=== PATIENT | male | born 1950 | race Caucasian/White ===

== ENCOUNTER → 2016-08-10 | Outpatient (CLI) | payer OTHER ==
--- NOTE | 2016-08-11 07:17 | REP ---
Clinical: Lung screening. History of nicotine dependence. Comparison: 01/02/2012 Technique: Axial low-dose noncontrast images from the thoracic inlet to the upper abdomen using lung screening technique. Findings: The lung vega are well-aerated. No consolidation, significant nodule or mass lesion is appreciated. No pleural effusion/reaction or pneumothorax. Tracheobronchial tree is patent. Mediastinum demonstrates mild atherosclerotic changes of the coronary arteries without cardiomegaly. Impression: Lung-RADS category I. No nodule or suspicious abnormality. Signed by Abhishek Booth MD 08/11/2016 07:08 A
== END ==
LOC: M RAD 11:04
PROVIDERS: ATTEND Internal Medicine Pulmonary Disease
DX: Z87.891 Personal history of nicotine dependence (principal)

== ENCOUNTER → 2016-09-02 | Outpatient (REF) | payer OTHER ==
[2016-09-02 20:19] LABS: BASO % 0.6 % (0.0-1.0); EOS # 0.2 K/mm3 (0.0-0.50); EOS % 2.3 % (0.0-3.0); LARGE UNSTAINED CELL # 0.2 K/mm3 (0.0-0.4); LARGE UNSTAINED CELL % 2.2 % (0.0-4.0); LYMPH # 1.8 K/mm3 (1.5-4.5); LYMPH % 22.5 % (24.0-44.0); MEAN CORPUSCULAR HEMOGLOBIN 27.7 pg (27.0-33.0); MEAN CORPUSCULAR VOLUME 86.6 fl (80.0-96.0); MONO # 0.5 K/mm3 (0.0-0.8); MONO % 7.1 % (0.0-5.0); NEUTROPHILS # 4.8 K/mm3 (1.8-7.7); NEUTROPHILS % 65.2 % (36.0-66.0); PLATELET COUNT, AUTOMATED 274 k/mm3 (150-450); RED CELL DISTRIBUTION WIDTH 13.6 % (11.5-14.5); WHITE BLOOD COUNT 7.3 K/mm3 (4.0-10.0)
[2016-09-02 20:33] LABS: ALBUMIN 3.4 GM/DL (3.2-5.2); ALBUMIN/GLOBULIN RATIO 1.13 (1.00-1.93); BILIRUBIN,TOTAL 0.2 MG/DL (0.2-1.0); CALCIUM LEVEL 9.1 MG/DL (8.8-10.2); CREATININE FOR GFR 1.44 MG/DL (0.70-1.30); GLOMERULAR FILTRATION RATE 51.9 (>49); TOTAL PROTEIN 6.4 GM/DL (6.4-8.2)
[2016-09-02 20:35] LABS: POTASSIUM SERUM 5.5 MEQ/L (3.5-5.1)
== END ==
LOC: M SFHCLERA 15:45
PROVIDERS: ATTEND Nurse Practitioner Family
DX: R07.81 Pleurodynia (principal); S22.41XA Multiple fractures of ribs, right side, initial encounter for closed fracture; R63.4 Abnormal weight loss; X58.XXXA Exposure to other specified factors, initial encounter; Y92.89 Other specified places as the place of occurrence of the external cause; Y93.89 Activity, other specified; Y99.8 Other external cause status; R73.09 Other abnormal glucose

== ENCOUNTER → 2016-09-02 | Outpatient (CLI) | payer OTHER ==
--- NOTE | 2016-09-02 15:57 | REP ---
Clinical: Right rib pain. Technique: Frontal view of the chest with multiple views of the right hemithorax. Findings: Frontal view of the chest demonstrates no obvious acute cardiopulmonary process. Multiple views of the right hemithorax demonstrate a very subtle nondisplaced fractures involving the and to anterolateral margins of the right seventh and eighth ribs. Impression: Subtle nondisplaced fractures involving the anterolateral 7th and 8th ribs. Signed by Abhishek Booth MD 09/02/2016 03:46 P
== END ==
LOC: M LRY 15:08
PROVIDERS: ATTEND Nurse Practitioner Family
DX: S22.41XA Multiple fractures of ribs, right side, initial encounter for closed fracture (principal); R07.81 Pleurodynia; R63.4 Abnormal weight loss; X58.XXXA Exposure to other specified factors, initial encounter; Y92.89 Other specified places as the place of occurrence of the external cause; Y93.89 Activity, other specified; Y99.8 Other external cause status; Z79.899 Other long term (current) drug therapy
CPT/HCPCS: 71101; 80053; 81002; 82150; 82948; 83036; 83690; 84443; 85025; 93005; G0463

== ENCOUNTER → 2017-07-26 | Outpatient (REF) | payer OTHER ==
[2017-07-26 13:32] LABS: BASO # 0.1 10^3/uL (0.0-0.2); BASO % 0.9 % (0.0-1.0); EOS # 0.2 10^3/uL (0.0-0.50); EOS % 2.8 % (0.0-3.0); HEMATOCRIT 38.9 % (42.0-52.0); HEMOGLOBIN 12.6 g/dl (13.5-17.5); IMMATURE GRANULOCYTE % 0.3 % (0-3.0); LYMPH # 1.7 10^3/uL (1.5-4.5); LYMPH % 23.5 % (24.0-44.0); MEAN CORPUSCULAR HEMOGLOBIN 28.1 pg (27.0-33.0); MEAN CORPUSCULAR HGB CONC 32.4 g/dl (32.0-36.5); MEAN CORPUSCULAR VOLUME 86.6 fl (80.0-96.0); MONO # 0.7 10^3/uL (0.0-0.8); MONO % 9.7 % (0.0-5.0); NEUTROPHILS # 4.4 10^3/uL (1.8-7.7); NEUTROPHILS % 62.8 % (36.0-66.0); PLATELET COUNT, AUTOMATED 193 10^3/uL (150-450); RED BLOOD COUNT 4.49 10^6/uL (4.30-6.10); RED CELL DISTRIBUTION WIDTH 14.6 % (11.5-14.5)
[2017-07-26 14:02] LABS: ESTIMATED AVERAGE GLUCOSE 137 MG/DL (60-110); HEMOGLOBIN A1c 6.4 %
[2017-07-26 14:05] LABS: ERYTHROCYTE SEDIMENTATION RATE 8 mm/hr (0-20)
[2017-07-26 14:13] LABS: FOLATE > 24.0 NG/ML; VITAMIN B12 LEVEL 1149 PG/ML
[2017-07-26 14:18] LABS: ALBUMIN 3.8 GM/DL (3.2-5.2); ALBUMIN/GLOBULIN RATIO 1.36 (1.00-1.93); ALKALINE PHOSPHATASE 77 U/L (45-117); ALT/SGPT 35 U/L (12-78); ANION GAP 6 MEQ/L (8-16); AST/SGOT 27 U/L (7-37); BILIRUBIN,TOTAL 0.3 MG/DL (0.2-1.0); BLOOD UREA NITROGEN 28 MG/DL (7-18); CALCIUM LEVEL 8.3 MG/DL (8.8-10.2); CARBON DIOXIDE LEVEL 29 MEQ/L (21-32); CHLORIDE LEVEL 107 MEQ/L (98-107); CREATININE FOR GFR 1.18 MG/DL (0.70-1.30); FERRITIN 8 NG/ML (26-388); FREE T4 0.84 NG/DL (0.76-1.46); GLOMERULAR FILTRATION RATE > 60.0 (>49); GLUCOSE, FASTING 92 MG/DL (70-100); IRON (FE) 98 UG/DL (65-175); PERCENT SATURATION 22.4 % (19.7-50.0); POTASSIUM SERUM 4.8 MEQ/L (3.5-5.1); RHEUMATOID FACTOR QUANT < 10.0 IU/ML (<15.0); SODIUM LEVEL 142 MEQ/L (136-145); TOTAL IRON BINDING CAPACITY 437 UG/DL (250-450); TOTAL PROTEIN 6.6 GM/DL (6.4-8.2)
[2017-07-28 08:11] LABS: ANTINUCLEAR ANTIBODIES DIRECT Negative (Negative); COPPER PLASMA 111 ug/dL (72-166); LEAD BLOOD ADULT <1 ug/dL (0-19); MERCURY LEVEL None Detected ug/L (0.0-14.9)
[2017-07-29 14:14] LABS: VITAMIN E(ALPHA TOCOPHEROL) 9.7 mg/L (9.0-29.0); VITAMIN E(GAMMA TOCOPHEROL) 1.1 mg/L (0.5-4.9)
[2017-07-30 00:08] LABS: CERULOPLASMIN 25.5 mg/dL (16.0-31.0); VITAMIN B1 LEVEL WHOLE BLOOD 169.1 nmol/L (66.5-200.0); VITAMIN B6,PYRIDOXAL PHOSPHATE 18.8 ug/L (5.3-46.7)
== END ==
LOC: M LABNEURO 10:19
DX: E07.9 Disorder of thyroid, unspecified (principal); E11.9 Type 2 diabetes mellitus without complications; R42 Dizziness and giddiness; E61.0 Copper deficiency
CPT/HCPCS: 82525

== ENCOUNTER → 2017-08-17 | Outpatient (REF) | payer OTHER ==
[2017-08-17 13:16] LABS: FERRITIN 6 NG/ML (26-388); IRON (FE) 79 UG/DL (65-175); PERCENT SATURATION 19.3 % (19.7-50.0); TOTAL IRON BINDING CAPACITY 409 UG/DL (250-450)
[2017-08-17 14:15] LABS: FOLATE 17.2 NG/ML; VITAMIN B12 LEVEL 811 PG/ML
== END ==
LOC: M LAB REF 12:42
DX: D64.9 Anemia, unspecified (principal)
CPT/HCPCS: 82746

== ENCOUNTER → 2017-09-21 | Outpatient (CLI) | payer OTHER | LOC: M RAD 12:18 | DX: M47.892 Other spondylosis, cervical region (principal) | CPT/HCPCS: 72052 ==

== ENCOUNTER → 2017-10-06 | Outpatient (CLI) | payer OTHER ==
[2017-10-06 13:11] LABS: BASO # 0.1 10^3/uL (0.0-0.2); BASO % 0.9 % (0.0-1.0); EOS # 0.3 10^3/uL (0.0-0.50); EOS % 3.8 % (0.0-3.0); HEMOGLOBIN 12.4 g/dl (13.5-17.5); IMMATURE GRANULOCYTE % 0.4 % (0-3.0); LYMPH # 1.9 10^3/uL (1.5-4.5); LYMPH % 28.5 % (24.0-44.0); MEAN CORPUSCULAR HEMOGLOBIN 28.4 pg (27.0-33.0); MEAN CORPUSCULAR HGB CONC 31.8 g/dl (32.0-36.5); MEAN CORPUSCULAR VOLUME 89.4 fl (80.0-96.0); MONO # 0.6 10^3/uL (0.0-0.8); MONO % 8.4 % (0.0-5.0); PLATELET COUNT, AUTOMATED 186 10^3/uL (150-450); RED BLOOD COUNT 4.36 10^6/uL (4.30-6.10); RED CELL DISTRIBUTION WIDTH 14.7 % (11.5-14.5); WHITE BLOOD COUNT 6.8 10^3/uL (4.0-10.0)
[2017-10-06 13:22] LABS: INR 0.92; PARTIAL THROMBOPLASTIN TIME 26.3 SECONDS (25.4-37.6); PROTHROMBIN TIME 12.5 SECONDS (12.1-14.4)
[2017-10-06 13:32] LABS: COLLAGEN EPINEPHRINE 140 SECONDS (74-162)
[2017-10-06 13:39] LABS: ALBUMIN 3.6 GM/DL (3.2-5.2); ALBUMIN/GLOBULIN RATIO 1.29 (1.00-1.93); ALKALINE PHOSPHATASE 75 U/L (45-117); ALT/SGPT 33 U/L (12-78); ANION GAP 8 MEQ/L (8-16); AST/SGOT 25 U/L (7-37); BILIRUBIN,TOTAL 0.3 MG/DL (0.2-1.0); BLOOD UREA NITROGEN 25 MG/DL (7-18); CALCIUM LEVEL 8.7 MG/DL (8.8-10.2); CARBON DIOXIDE LEVEL 28 MEQ/L (21-32); CHLORIDE LEVEL 109 MEQ/L (98-107); CREATININE FOR GFR 1.24 MG/DL (0.70-1.30); GLOMERULAR FILTRATION RATE > 60.0 (>49); GLUCOSE, FASTING 118 MG/DL (70-100); POTASSIUM SERUM 4.7 MEQ/L (3.5-5.1); SODIUM LEVEL 145 MEQ/L (136-145); TOTAL PROTEIN 6.4 GM/DL (6.4-8.2)
== END ==
LOC: M LAB 11:58
DX: Z01.818 Encounter for other preprocedural examination (principal); Z79.899 Other long term (current) drug therapy
CPT/HCPCS: 71046

== ENCOUNTER 2017-10-26 11:38 | Day surgery (SDC) | payer OTHER ==
[2017-10-26] MEDS ORDERED: LR 1,000 ML IV (11:45)
[2017-10-26 12:58] LABS: BEDSIDE GLUCOSE 104 MG/DL (80-115)
[2017-10-26] MEDS ORDERED: fentaNYL 100 MCG/2 ML INJECTION (J3010) As Ordered (13:10)
[2017-10-26] MEDS ORDERED: MIDAZOLAM INJ 2 MG/2 ML VIAL (J2250) As Ordered (13:11)
[2017-10-26] MEDS ORDERED: LIDOCAINE 2% INJ 100 MG/5 ML SDV (FOR ANES.) As Ordered (13:13)
[2017-10-26] MEDS ORDERED: PROPOFOL 200 MG/20 ML VIAL As Ordered (13:13)
[2017-10-26] MEDS: methylPREDNISolone SUSP 40 MG/ML (DEPO-medrol) VIAL (J1030) As Ordered (15:29)
[2017-10-26] MEDS: LIDOCAINE 1% SDV INJ 30 ML VIAL As Ordered (15:31)
== END 2017-10-26 17:07 | disposition home or self-care (01) ==
LOC: M SDC 11:38
DX: G57.82 Other specified mononeuropathies of left lower limb (principal); M21.372 Foot drop, left foot; I25.10 Atherosclerotic heart disease of native coronary artery without angina pectoris; I25.2 Old myocardial infarction; I13.10 Hypertensive heart and chronic kidney disease without heart failure, with stage 1 through stage 4 chronic kidney disease, or unspecified chronic kidney disease; E78.00 Pure hypercholesterolemia, unspecified; E11.9 Type 2 diabetes mellitus without complications; K21.9 Gastro-esophageal reflux disease without esophagitis; D64.9 Anemia, unspecified; R29.898 Other symptoms and signs involving the musculoskeletal system; M12.9 Arthropathy, unspecified; L40.9 Psoriasis, unspecified; R51 Headache; G62.9 Polyneuropathy, unspecified; J44.9 Chronic obstructive pulmonary disease, unspecified; G47.33 Obstructive sleep apnea (adult) (pediatric); N18.3 Chronic kidney disease, stage 3 (moderate); Z79.899 Other long term (current) drug therapy; Z79.82 Long term (current) use of aspirin; Z95.5 Presence of coronary angioplasty implant and graft; Z87.891 Personal history of nicotine dependence
CPT/HCPCS: 64722

== ENCOUNTER → 2018-02-02 | Outpatient (REF) | payer OTHER ==
[2018-02-02 18:18] LABS: BLOOD UREA NITROGEN 26 MG/DL (7-18)
[2018-02-02 18:18] LABS: CREATININE FOR GFR 1.38 MG/DL (0.70-1.30); GLOMERULAR FILTRATION RATE 54.4 (>49)
== END ==
LOC: M LABNEURO 14:11
DX: N18.9 Chronic kidney disease, unspecified (principal)
CPT/HCPCS: 82565

== ENCOUNTER → 2018-07-17 | Outpatient (CLI) | payer MEDICARE ==
[~2018-07-17] MED LIST: ASPI81TA21 PO; BUPR1TAB53 PO; CALC600T57 PO; CRES40TA PO; FERR32TA PO; FISH1200 PO; JANU25TA PO; LISI-1046 PO; MAGN400C2 PO; META0.52 PO; MULT1TAB28 PO; NITR4TASL SL; OMEP20CA3 PO; PRAM0.255 PO; VENL100T PO; VITA-122 PO; VITA500T3 PO
--- NOTE | 2018-07-17 13:15 | REP ---
CT chest with IV contrast: History: Solitary pulmonary nodule. Comparison is made with prior CT studies, the most remote of which is from January 02, 2012. A CT study is reviewed from August 10, 2016 and another from an outside facility June 27, 2017. CT findings: There is minimal linear fibrosis in the left lower lobe and posteriorly in the right upper lobe. There is a tiny subpleural 3 mm pulmonary nodule in the superior segment of the right lower lobe which is unchanged from all the prior studies including 2011. This is benign. No other significant pulmonary nodule is appreciated. There are small subcentimeter cysts in the dome of the liver. Post cholecystectomy clips are seen. No adrenal lesion is seen. There is extensive vascular calcification of the coronaries. No hilar or mediastinal mass or adenopathy is observed. No pleural or pericardial effusion is seen. Bone window settings show no bony destructive lesion. Impression: No active disease seen. Electronically Signed by Sanya Soliman MD 07/17/2018 07:29 P
== END ==
LOC: M RAD 12:18
PROVIDERS: ATTEND Internal Medicine Pulmonary Disease
DX: R91.1 Solitary pulmonary nodule (principal)

== ENCOUNTER → 2019-12-04 | Outpatient (CLI) | payer MEDICARE ==
[~2019-12-04] MED LIST changes: +CYAN500T8 PO; -LISI-1046 PO; +LISI2.5T2 PO; +OMEP1CAP73 PO; -OMEP20CA3 PO; -VITA500T3 PO
--- NOTE | 2019-12-12 09:44 | REP ---
BILATERAL LOWER EXTREMITY DUPLEX DOPPLER ARTERIAL ULTRASOUND: HISTORY: Atherosclerosis, leg pain. FINDINGS: Real time ultrasound evaluation and duplex Doppler interrogation of bilateral lower extremity arterial systems is performed. There is mild scattered plaquing and narrowing in the bilateral lower extremity arterial systems. However, there is no compelling duplex Doppler sonographic evidence of hemodynamically significant stenosis bilaterally. Triphasic wave forms are seen diffusely bilaterally with biphasic wave form in the distal left anterior tibial artery. PEAK SYSTOLIC VELOCITY ANALYSIS RIGHT (cm/s) LEFT (cm/s) Common femoral artery 95.6 134.1 Profunda 70.9 91.0 Proximal SFA 104.7 130.5 Mid-SFA 82.8 116.7 Distal SFA 106.1 126.6 Popliteal 81.6 64.9 Proximal SERG 89.5 88.4 Tibioperoneal trunk 75.6 86.8 Proximal MOTOR RUNNER 65.0 68.6 Distal MOTOR RUNNER 82.0 64.4 Distal SERG 68.4 70.6 MTDD
== END ==
LOC: M RAD 09:53
PROVIDERS: ATTEND Physician Assistant
DX: I70.203 Unspecified atherosclerosis of native arteries of extremities, bilateral legs (principal); M79.604 Pain in right leg; R09.89 Other specified symptoms and signs involving the circulatory and respiratory systems

== ENCOUNTER → 2020-11-12 | Outpatient (REF) | payer MEDICARE ==
[~2020-11-12] MED LIST changes: +CYAN500T14 PO; -CYAN500T8 PO; -LISI2.5T2 PO; +LISI2.5T9 PO
== END ==
LOC: M LAB REF 17:05
PROVIDERS: ATTEND Internal Medicine Nephrology
DX: N18.32 Chronic kidney disease, stage 3b (principal)

== ENCOUNTER → 2021-07-17 | Outpatient (REF) | payer MEDICARE ==
[2021-07-23 19:09] LABS: METANEPHRINE PLASMA 26.9 pg/mL (0.0-88.0)
== END ==
LOC: M LAB REF 17:50
PROVIDERS: ATTEND Nurse Practitioner Family
DX: N18.32 Chronic kidney disease, stage 3b (principal)

== ENCOUNTER → 2021-07-20 | Outpatient (CLI) | payer MEDICARE | LOC: M RAD 12:55 | PROVIDERS: ATTEND Nurse Practitioner Family | DX: R63.4 Abnormal weight loss (principal); R00.0 Tachycardia, unspecified; K57.30 Diverticulosis of large intestine without perforation or abscess without bleeding; N28.1 Cyst of kidney, acquired ==

== ENCOUNTER → 2021-09-02 | Outpatient (REF) | payer MEDICARE ==
[2021-09-03 17:50] LABS: IRON (FE) 97 UG/DL (65-175); PERCENT SATURATION 25.7 % (19.7-50.0); TOTAL IRON BINDING CAPACITY 377 UG/DL (250-450)
[2021-09-04 11:33] LABS: FOLATE > 24.0 NG/ML; VITAMIN B12 LEVEL 395 PG/ML
== END ==
LOC: M LAB REF 16:51
PROVIDERS: ATTEND Nurse Practitioner Family
DX: D50.9 Iron deficiency anemia, unspecified (principal); D51.9 Vitamin B12 deficiency anemia, unspecified

== ENCOUNTER → 2021-10-28 | Outpatient (CLI) | payer MEDICARE ==
[~2021-10-28] MED LIST changes: +ALBU8.5H INH; +AMMO12CR7; +CALC1CAP31 PO; +CLOT1CRE71 TOP; +DULC100C PO; +DULE200A INH; +ECOT81TA5 PO; +EZET10TA21 PO; +IRBE75TA4 PO; +KEPP250T5 PO; +META28.32 PO; +MIRA0.254 PO; +MULT-6 PO; +OMEP40CA4 PO; +PRAV40TA2 PO; +PRAZ1CAP PO; +TORS10TA3 PO; +VITA100093 PO
== END ==
LOC: M LABSMTC 09:58
PROVIDERS: ATTEND Anesthesiology
DX: Z01.818 Encounter for other preprocedural examination (principal); Z11.52 Encounter for screening for COVID-19

== ENCOUNTER → 2022-01-06 | Outpatient (CLI) | payer MEDICARE ==
[~2022-01-06] MED LIST changes: -AMMO12CR7; +AMMO12CR7 TOP; -DULE200A INH; +MOME13HF7 INH; +VENL150C43 PO
== END ==
LOC: M LABSMTC 10:38
PROVIDERS: ATTEND Anesthesiology
DX: Z01.812 Encounter for preprocedural laboratory examination (principal); Z11.52 Encounter for screening for COVID-19

== ENCOUNTER 2022-01-11 10:02 | Day surgery (SDC) | payer MEDICARE, OTHER ==
[~2022-01-11] VITALS: Ht 177.8 cm; Wt 99.8 kg
[~2022-01-11 10:02] MED LIST changes: +BSS IRRIG/VANCO(10MG)/TOBRA(5MG)/EPINEPH(1:1000-0.5CC)500ML BAG-ORONLY IR ONE; +CEFUROXIME 1MG/0.1ML INTRACAMERAL INJ As Ordered ONE; +CYCLOPENTOLATE 1% OPHTH SOLN 2 ML BTL OD SCH; +LIDOCAINE 1% SDV 5ML VIAL As Ordered ONE; +LIDOCAINE 3.5 % 1ML OPHTH TOPICAL GEL OU ONE; +OFLOXACIN 0.3 % (OCUFLOX) OPTH SOL 5ML OD ONE; +PHENYLEPHRINE 2.5% OPHTH SOL 2ML OD SCH; +PHENYLEPHRINE HCL 10 % OPHTH. SOL 5ML OD PRN; +TROPICAMIDE 1% OPHTH SOLN 2ML OD SCH
[2022-01-11] MEDS ORDERED: MIDAZOLAM INJ 2MG/2ML VIAL (J2250 PER 1MG) As Ordered ONE (11:17)
[2022-01-11 12:00] VITALS: BP 161/83
== END 2022-01-11 12:25 | disposition home or self-care (01) ==
LOC: M SDC 10:02
PROVIDERS: ATTEND Ophthalmology
DX: H25.11 Age-related nuclear cataract, right eye (principal); J98.9 Respiratory disorder, unspecified; Z95.5 Presence of coronary angioplasty implant and graft; E11.9 Type 2 diabetes mellitus without complications; Z88.8 Allergy status to other drugs, medicaments and biological substances
CPT/HCPCS: 66984; J0697; J2250; V2632

== ENCOUNTER → 2022-04-15 | Outpatient (CLI) | payer MEDICARE, OTHER ==
[~2022-04-15] MED LIST changes: -BSS IRRIG/VANCO(10MG)/TOBRA(5MG)/EPINEPH(1:1000-0.5CC)500ML BAG-ORONLY IR ONE; -CEFUROXIME 1MG/0.1ML INTRACAMERAL INJ As Ordered ONE; -CYCLOPENTOLATE 1% OPHTH SOLN 2 ML BTL OD SCH; -LIDOCAINE 1% SDV 5ML VIAL As Ordered ONE; -LIDOCAINE 3.5 % 1ML OPHTH TOPICAL GEL OU ONE; -OFLOXACIN 0.3 % (OCUFLOX) OPTH SOL 5ML OD ONE; -PHENYLEPHRINE 2.5% OPHTH SOL 2ML OD SCH; -PHENYLEPHRINE HCL 10 % OPHTH. SOL 5ML OD PRN; -TROPICAMIDE 1% OPHTH SOLN 2ML OD SCH
== END ==
LOC: M LABSMTC 10:19
PROVIDERS: ATTEND Anesthesiology
DX: Z01.812 Encounter for preprocedural laboratory examination (principal); Z20.822 Contact with and (suspected) exposure to COVID-19

== ENCOUNTER → 2022-04-15 | Outpatient (REF) | LOC: M LABSMTC 10:09 | PROVIDERS: ATTEND Anesthesiology | DX: Z11.52 Encounter for screening for COVID-19 (principal); Z53.9 Procedure and treatment not carried out, unspecified reason ==

== ENCOUNTER 2022-04-19 07:48 | Day surgery (SDC) | payer MEDICARE, OTHER ==
[~2022-04-19] VITALS: Ht 177.8 cm; Wt 98.9 kg
[~2022-04-19 07:48] MED LIST changes: +BSS IRRIG/VANCO(10MG)/TOBRA(5MG)/EPINEPH(1:1000-0.5CC)500ML BAG-ORONLY IR ONE; +CEFUROXIME 1MG/0.1ML INTRACAMERAL INJ As Ordered ONE; +CYCLOPENTOLATE 1% OPHTH SOLN 2ML BTL OS SCH; +LIDOCAINE 1% SDV 5ML VIAL As Ordered ONE; +LIDOCAINE 3.5 % 1ML OPHTH TOPICAL GEL OU ONE; +OFLOXACIN 0.3 % (OCUFLOX) OPTH SOL 5ML OS ONE; +PHENYLEPHRINE 10% OPHTH SOL 5ML OS PRN; +PHENYLEPHRINE 2.5% OPHTH SOL 2ML OS SCH; +TROPICAMIDE 1% OPHTH SOLN 15ML OS SCH
[2022-04-19] MEDS ORDERED: fentaNYL 100 MCG/2 ML INJECTION As Ordered ONE (08:59)
[2022-04-19 09:40] VITALS: BP 146/67
== END 2022-04-19 10:10 | disposition home or self-care (01) ==
LOC: M SDC 07:48
PROVIDERS: ATTEND Ophthalmology
DX: H25.12 Age-related nuclear cataract, left eye (principal); I48.91 Unspecified atrial fibrillation; I12.9 Hypertensive chronic kidney disease with stage 1 through stage 4 chronic kidney disease, or unspecified chronic kidney disease; N18.30 Chronic kidney disease, stage 3 unspecified; E78.5 Hyperlipidemia, unspecified; E11.9 Type 2 diabetes mellitus without complications; K21.9 Gastro-esophageal reflux disease without esophagitis; J44.9 Chronic obstructive pulmonary disease, unspecified; G47.30 Sleep apnea, unspecified; L40.9 Psoriasis, unspecified; F41.9 Anxiety disorder, unspecified; F32.A Depression, unspecified; F43.10 Post-traumatic stress disorder, unspecified; I25.10 Atherosclerotic heart disease of native coronary artery without angina pectoris; Z98.61 Coronary angioplasty status; I25.2 Old myocardial infarction; R51.9 Headache, unspecified; Z79.51 Long term (current) use of inhaled steroids; Z79.899 Other long term (current) drug therapy; Z88.8 Allergy status to other drugs, medicaments and biological substances; Z87.891 Personal history of nicotine dependence
CPT/HCPCS: 66984; J0697; J3010; V2632

== ENCOUNTER → 2022-07-28 | Outpatient (REF) | payer MEDICARE ==
[~2022-07-28] MED LIST changes: -BSS IRRIG/VANCO(10MG)/TOBRA(5MG)/EPINEPH(1:1000-0.5CC)500ML BAG-ORONLY IR ONE; -CEFUROXIME 1MG/0.1ML INTRACAMERAL INJ As Ordered ONE; -CYCLOPENTOLATE 1% OPHTH SOLN 2ML BTL OS SCH; -LIDOCAINE 1% SDV 5ML VIAL As Ordered ONE; -LIDOCAINE 3.5 % 1ML OPHTH TOPICAL GEL OU ONE; -OFLOXACIN 0.3 % (OCUFLOX) OPTH SOL 5ML OS ONE; -PHENYLEPHRINE 10% OPHTH SOL 5ML OS PRN; -PHENYLEPHRINE 2.5% OPHTH SOL 2ML OS SCH; -TROPICAMIDE 1% OPHTH SOLN 15ML OS SCH
[2022-07-28 18:50] LABS: PERCENT SATURATION 21.7 % (19.7-50.0)
== END ==
LOC: M LAB REF 17:29
PROVIDERS: ATTEND Nurse Practitioner Family
DX: D50.9 Iron deficiency anemia, unspecified (principal)

== ENCOUNTER → 2023-09-29 | Outpatient (REF) | payer MEDICARE ==
[~2023-09-29] MED LIST changes: +IRBE75TA11 PO; -IRBE75TA4 PO
[2023-09-29 19:55] LABS: PERCENT SATURATION 10.5 % (19.7-50.0)
[2023-09-29 19:56] LABS: FERRITIN 8.8 NG/ML (10.5-307.3)
== END ==
LOC: M LAB REF 17:03
PROVIDERS: ATTEND Nurse Practitioner Family
DX: D50.9 Iron deficiency anemia, unspecified (principal)

== ENCOUNTER 2023-10-19 13:15 | Outpatient (CLI) | payer MEDICARE ==
[~2023-10-19] VITALS: Ht 177.8 cm; Wt 97.7 kg
[2023-10-19 13:15] VITALS: BP 145/70; O2SAT 97
[~2023-10-19 13:15] MED LIST changes: +ALBUTEROL SULFATE 2.5MG/0.5ML INH NEB SOLN INH PRN; +EPINEPHrine INJ 1 MG/ML 1ML AMP IM PRN; +diphenhydrAMINE 50MG/ML VIAL IV PRN; +methylPREDNISolone 125MG 2ML VIAL IV PRN
[2023-10-19] MEDS ORDERED: NS 1,000 ML IV SCH (13:30)
[2023-10-19] MEDS: FERRIC CARBOXYMALTOSE INJ 750 MG in NS 250 ML (>50kg) IV ONE (13:47)
[2023-10-19 15:00] VITALS: BP 138/72; O2SAT 97
== END 2023-10-19 15:00 ==
LOC: M INFU 13:15
PROVIDERS: ATTEND Nurse Practitioner Family
DX: D50.9 Iron deficiency anemia, unspecified (principal); Z88.8 Allergy status to other drugs, medicaments and biological substances
CPT/HCPCS: 96365; J1439

== ENCOUNTER 2023-10-26 13:30 | Outpatient (CLI) | payer MEDICARE ==
[~2023-10-26 13:30] MED LIST changes: +NS 1,000 ML IV SCH
[2023-10-26 13:40] VITALS: BP 134/79; O2SAT 98
[2023-10-26] MEDS: FERRIC CARBOXYMALTOSE INJ 750 MG in NS 250 ML (>50kg) IV ONE (13:48)
[2023-10-26 15:00] VITALS: BP 143/81; O2SAT 96
== END 2023-10-26 15:00 ==
LOC: M INFU 13:30
PROVIDERS: ATTEND Nurse Practitioner Family
DX: D50.9 Iron deficiency anemia, unspecified (principal); Z88.8 Allergy status to other drugs, medicaments and biological substances
CPT/HCPCS: 96365; J1439

== ENCOUNTER → 2024-01-13 | Outpatient (REF) | payer MEDICARE ==
[~2024-01-13] MED LIST changes: -ALBUTEROL SULFATE 2.5MG/0.5ML INH NEB SOLN INH PRN; -EPINEPHrine INJ 1 MG/ML 1ML AMP IM PRN; -NS 1,000 ML IV SCH; -diphenhydrAMINE 50MG/ML VIAL IV PRN; -methylPREDNISolone 125MG 2ML VIAL IV PRN
[2024-01-16 19:29] LABS: PERCENT SATURATION 27.6 % (19.7-50.0)
[2024-01-16 19:30] LABS: FERRITIN 284.4 NG/ML (10.5-307.3)
== END ==
LOC: M LAB REF 16:52
PROVIDERS: ATTEND Nurse Practitioner Family
DX: D50.9 Iron deficiency anemia, unspecified (principal)

== ENCOUNTER → 2024-04-17 | Outpatient (REF) | payer MEDICARE ==
[2024-04-17 18:12] LABS: PERCENT SATURATION 7.1 % (19.7-50.0)
== END ==
LOC: M LAB REF 17:26
PROVIDERS: ATTEND Nurse Practitioner Family
DX: D50.9 Iron deficiency anemia, unspecified (principal)

== ENCOUNTER 2024-05-08 13:06 | Outpatient (CLI) | payer MEDICARE ==
[~2024-05-08] VITALS: Ht 177.8 cm; Wt 90.0 kg
[~2024-05-08 13:06] MED LIST changes: +ALBUTEROL SULFATE 2.5MG/0.5ML INH NEB SOLN INH PRN; +EPINEPHrine INJ 1 MG/ML 1ML AMP IM PRN; +diphenhydrAMINE 50MG/ML VIAL IV PRN; +methylPREDNISolone 125MG 2ML VIAL IV PRN
[2024-05-08 13:30] VITALS: BP 132/76; O2SAT 97
[2024-05-08] MEDS ORDERED: NS (Normal Saline) 0.9% 1,000 ML IV SCH (13:30)
[2024-05-08] MEDS: FERRIC CARBOXYMALTOSE 750 MG (VIAL MATE) IN 100ML NS IV ONE (13:49)
[2024-05-08 14:29] VITALS: BP 165/76; O2SAT 97
== END 2024-05-08 14:30 ==
LOC: M INFU 13:06
PROVIDERS: ATTEND Nurse Practitioner Family
DX: D50.9 Iron deficiency anemia, unspecified (principal); Z88.8 Allergy status to other drugs, medicaments and biological substances
CPT/HCPCS: 96365; J1439

== ENCOUNTER → 2024-05-14 | Outpatient (CLI) | payer MEDICARE ==
[~2024-05-14] MED LIST changes: -ALBUTEROL SULFATE 2.5MG/0.5ML INH NEB SOLN INH PRN; -EPINEPHrine INJ 1 MG/ML 1ML AMP IM PRN; -diphenhydrAMINE 50MG/ML VIAL IV PRN; -methylPREDNISolone 125MG 2ML VIAL IV PRN
== END ==
LOC: M WHC 13:41
PROVIDERS: ATTEND Physician Assistant Surgical
DX: M51.360 Other intervertebral disc degeneration, lumbar region with discogenic back pain only (principal); S32.040A Wedge compression fracture of fourth lumbar vertebra, initial encounter for closed fracture; M47.896 Other spondylosis, lumbar region

== ENCOUNTER 2024-05-15 13:25 | Outpatient (CLI) | payer MEDICARE ==
[~2024-05-15] VITALS: Ht 177.8 cm; Wt 92.3 kg
[2024-05-15 12:30] VITALS: BP 123/98; O2SAT 97
[~2024-05-15 13:25] MED LIST changes: +ALBUTEROL SULFATE 2.5MG/0.5ML INH NEB SOLN INH PRN; +EPINEPHrine INJ 1 MG/ML 1ML AMP IM PRN; +NS (Normal Saline) 0.9% 1,000 ML IV SCH; +diphenhydrAMINE 50MG/ML VIAL IV PRN; +methylPREDNISolone 125MG 2ML VIAL IV PRN
[2024-05-15] MEDS: FERRIC CARBOXYMALTOSE 750 MG (VIAL MATE) IN 100ML NS IV ONE (13:34)
[2024-05-15 14:01] VITALS: BP 132/73; O2SAT 95
== END 2024-05-15 14:00 ==
LOC: M INFU 13:25
PROVIDERS: ATTEND Nurse Practitioner Family
DX: D50.9 Iron deficiency anemia, unspecified (principal); Z88.8 Allergy status to other drugs, medicaments and biological substances
CPT/HCPCS: 96365; J1439

== ENCOUNTER → 2024-06-05 | Outpatient (CLI) | payer MEDICARE ==
[~2024-06-05] MED LIST changes: -ALBUTEROL SULFATE 2.5MG/0.5ML INH NEB SOLN INH PRN; -EPINEPHrine INJ 1 MG/ML 1ML AMP IM PRN; -NS (Normal Saline) 0.9% 1,000 ML IV SCH; -diphenhydrAMINE 50MG/ML VIAL IV PRN; -methylPREDNISolone 125MG 2ML VIAL IV PRN
== END ==
LOC: M SOG 07:49
PROVIDERS: ATTEND Physician Assistant
DX: S82.434A Nondisplaced oblique fracture of shaft of right fibula, initial encounter for closed fracture (principal); M19.071 Primary osteoarthritis, right ankle and foot; M25.774 Osteophyte, right foot; R22.41 Localized swelling, mass and lump, right lower limb; I70.201 Unspecified atherosclerosis of native arteries of extremities, right leg

== ENCOUNTER → 2024-07-13 | Outpatient (CLI) | payer MEDICARE ==
[~2024-07-13] MED LIST changes: +BUPR150T15 PO; -BUPR1TAB53 PO
== END ==
LOC: M SOG 07:25
PROVIDERS: ATTEND Physician Assistant
DX: M79.661 Pain in right lower leg (principal)

== ENCOUNTER → 2024-07-19 | Outpatient (REF) | payer MEDICARE ==
[~2024-07-19] MED LIST changes: +AMMO12CR4 TOP; -AMMO12CR7 TOP
[2024-07-19 17:34] LABS: PERCENT SATURATION 27.2 % (19.7-50.0)
[2024-07-19 17:40] LABS: FERRITIN 544.6 NG/ML (10.5-307.3)
== END ==
LOC: M LAB REF 17:06
PROVIDERS: ATTEND Nurse Practitioner Family
DX: D50.9 Iron deficiency anemia, unspecified (principal)